=== PATIENT | female | born 1990 ===

== ENCOUNTER 2019-03-21 11:13 | Emergency (ER) | payer SELFPAY ==
--- NOTE | 2019-03-21 11:54 | Event Note ---
ED Screening Note Date of service: 03/21/19 Time: 11:47 ED Screening Note: 28 y o f presents with pelvic pain and vag bleed This initial assessment/diagnostic orders/clinical plan/treatment(s) is/are subject to change based on patients health status, clinical progression and re- assessment by fellow clinical providers in the ED. Further treatment and workup at subsequent clinical providers discretion. Patient/guardian urged not to elope from the ED as their condition may be serious if not clinically assessed and managed. Initial orders include: ua, upt
[2019-03-21 12:24] LABS: Bacteria,Urine 1+ /HPF (Negative); Bilirubin,Urine NEG (Negative); Blood,Urine NEG (Negative); Color,Urine Yellow (Yellow); Mucus,Urine 2+ /HPF; Protein,Urine <15 mg/dL mg/dL (Negative); Urobilinogen,Urine < 2.0 mg/dL (<2.0)
[2019-03-21 12:38] LABS: HCG Qualitative,Urine Negative (Negative)
--- NOTE | 2019-03-21 15:20 | Emergency Department Report ---
ED Female HPI - General Chief complaint: Urogenital-Female Stated complaint: PAIN IN GROIN Time Seen by Provider: 03/21/19 15:11 Source: patient Mode of arrival: Ambulatory Limitations: No Limitations - History of Present Illness Initial comments: Patient is a 28-year-old female that presents emergency room with complaints of pelvic pain and abnormal vaginal bleeding. Patient states she's been having pelvic pain for 15 days. Patient states that her vaginal bleeding started 3 days ago. Patient states she's had intermittent bleeding over the past 15 however 3 days ago it started with heavy bleeding. Patient states she has a metal IUD that was placed 3 years ago in [place]. Patient states she's not had a recheck to her find the placement of the IUD. Patient is also complaining of headache and dizziness. Patient states her headache and dizziness is better with rest and worse with exertion and movement. She states her headache and dizziness go away with rest. Patient states her pain is an 8 out of 10 and is worsening. Patient states the pain is in her suprapubic and lower abdomen region. Patient states that her pain is better with rest and worse with movement, and sex. MD Complaint: vaginal bleeding, pelvic pain -: Sudden Location: suprapubic, LLQ Radiation: non-radiating Severity: severe Severity scale (0 -10): 8 Quality: sharp Consistency: constant Improves with: other Worsens with: intercourse, menstrual period, movement Are you Now?: No Associated Symptoms: vaginal bleeding, abdominal pain, headaches, other. denies: vaginal discharge, nausea/vomiting, fever/chills, loss of appetite, dysuria, hematuria, rash, seizure, shortness of breath, syncope, weakness - Related Data Sexually active: Yes Previous Rx's Medication Instructions Recorded Last Taken Type Acetaminophen/Codeine [Tylenol 1 tab PO Q6H PRN #12 tab 03/21/19 Unknown Rx /Codeine # 3 tab] Allergies Allergy/AdvReac Type Severity Reaction Status Date / Time No Known Allergies Allergy Unverified 03/21/19 11:39 ED Review of Systems ROS: Stated complaint: PAIN IN GROIN Other details as noted in HPI Constitutional: denies: chills, fever Eyes: denies: eye pain, eye discharge, vision change ENT: denies: ear pain, throat pain Respiratory: denies: cough, shortness of breath, wheezing Cardiovascular: denies: chest pain, palpitations Endocrine: no symptoms reported Gastrointestinal: abdominal pain. denies: nausea, vomiting, diarrhea Genitourinary: denies: urgency, dysuria, discharge Musculoskeletal: denies: back pain, joint swelling, arthralgia Skin: denies: rash, lesions Neurological: headache. denies: weakness, paresthesias Psychiatric: denies: anxiety, depression Hematological/Lymphatic: denies: easy bleeding, easy bruising ED Past Medical Hx - Past Medical History Previous Medical History?: No - Surgical History Past Surgical History?: Yes Additional Surgical History: IUD - Family History Family history: no significant - Social History Smoking Status: Never Smoker Substance Use Type: None - Medications Home Medications: Home Medications Medication Instructions Recorded Confirmed Last Taken Type Acetaminophen/Codeine [Tylenol 1 tab PO Q6H PRN #12 tab 03/21/19 Unknown Rx /Codeine # 3 tab] ED Physical Exam - General Limitations: No Limitations General appearance: alert, in no apparent distress - Head Head exam: Present: atraumatic, normocephalic - Eye Eye exam: Present: normal appearance, PERRL Pupils: Present: normal accommodation - ENT ENT exam: Present: normal orophraynx, mucous membranes moist. Absent: mucous membranes dry - Neck Neck exam: Present: normal inspection - Respiratory Respiratory exam: Present: normal lung sounds bilaterally. Absent: respiratory distress, wheezes, rales - Cardiovascular Cardiovascular Exam: Present: regular rate, normal rhythm. Absent: systolic murmur, diastolic murmur, rubs, gallop - GI/Abdominal GI/Abdominal exam: Present: soft, tenderness, normal bowel sounds - Rectal Rectal exam: Present: deferred - Extremities Exam Extremities exam: Present: normal inspection - Back Exam Back exam: Present: normal inspection - Neurological Exam Neurological exam: Present: alert, oriented X3 - Psychiatric Psychiatric exam: Present: normal affect, normal mood - Skin Skin exam: Present: warm, dry, intact, normal color. Absent: rash ED Course Vital Signs 03/21/19 03/21/19 11:34 16:55 Temperature 97.5 F L 97.8 F Pulse Rate 92 H 70 Respiratory 18 16 Rate Blood Pressure 104/66 Blood Pressure 97/74 [Right] O2 Sat by Pulse 98 99 Oximetry - Reevaluation(s) Reevaluation #1: I discussed all results with patient. I discussed plan of care with patient and . Patient agrees plan of care. Patient we discharged home. Patient stable for discharge. I gave the patient discharge instructions. Patient voiced understanding of discharge instructions. 03/21/19 19:11 ED Medical Decision Making - Lab Data Result diagrams: 03/21/19 15:36 03/21/19 15:36 - Radiology Data Radiology results: report reviewed Pelvic ultrasound Doppler INDICATION: Pelvic pain TECHNIQUE: Real-time grayscale and Doppler imaging of the pelvis and ovaries performed. FINDINGS: Intrauterine device is noted within the endometrial canal the intrauterine device appears about 3 cm from the top of the fundus. Both ovaries normal in appearance with normal Doppler flow. No free pelvic fluid IMPRESSION: Possibly low intrauterine device which is located about 3 cm inferior with respect to the upper aspect of the fundus. - Medical Decision Making Patient is a 28-year-old female that presents emergency with complaints of lower abdominal pain and abnormal vaginal bleeding. Patient's also complained of headache and dizziness. Patient's labs are unremarkable. Patient also had an ultrasound done in the ER and was no acute findings except for a low riding IUD. Patient is stable for discharge. Patient discharged home. Patient require follow-up by an outpatient [facility]. - Differential Diagnosis abnormal vaginal bleeding, pelvic pain, displaced IUD. Ovarian torsion. Critical care attestation.: If time is entered above; I have spent that time in minutes in the direct care of this critically ill patient, excluding procedure time. ED Disposition Clinical Impression: Pelvic pain, IUD (intrauterine device) in place, Abnormal vaginal bleeding, Dizziness Disposition: DC-01 TO HOME OR SELFCARE Is pt being admited?: No Does the pt Need Aspirin: No Condition: Stable Instructions: Menstruation (ED), Dysfunctional Uterine Bleeding (ED), Menorrhagia (ED) Additional Instructions: Patient to follow up with primary care in 2-3 days. Patient to return to ER if condition worsens or changes or new symptoms arise. Patient to rest. Patient to follow up with [facility] in 2-3 days. Patient to take a vitamin daily. Patient to avoid anything per vagina until cleared by [facility]. Patient to increase water. Patient take Tylenol or ibuprofen when necessary for pain. Prescriptions: Acetaminophen/Codeine [Tylenol /Codeine # 3 tab] 1 tab PO Q6H PRN #12 tab PRN Reason: Pain , Severe (7-10) Referrals: PRIMARY CARE, [Primary Care Provider] - 2-3 Days ISHMAEL CHAVEZ MD [Staff Physician] - 2-3 Days Forms: Work/School Release Form(ED) Time of Disposition: 19:19 Print Language: LATVIAN
[2019-03-21 15:51] LABS: Hematocrit 34.5 % (30.3-42.9); Hemoglobin 12.2 gm/dl (10.1-14.3); Mean Corpuscular HGB Conc 35 % (30-34); Mean Corpuscular Volume 89 fl (79-97); Platelet Count 274 K/mm3 (140-440); Red Blood Count 3.89 M/mm3 (3.65-5.03); Red Cell Distribution Width 13.3 % (13.2-15.2)
[2019-03-21 16:06] LABS: Alanine Aminotransferase 12 units/L (7-56); Albumin 4.3 g/dL (3.9-5); BUN/Creatinine Ratio 20; Blood Urea Nitrogen 10 mg/dL (7-17); Calcium 9.5 mg/dL (8.4-10.2); Hemolysis Index 2
[2019-03-21 16:58] VITALS: BP 97/74
--- NOTE | 2019-03-21 18:55 | Ultrasound Report ---
Pelvic ultrasound Doppler INDICATION: Pelvic pain TECHNIQUE: Real-time grayscale and Doppler imaging of the pelvis and ovaries performed. FINDINGS: Intrauterine device is noted within the endometrial canal the intrauterine device appears a bout 3 cm from the top of the fundus. Both ovaries normal in appearance with normal Doppler flow. No free pelvic fluid IMPRESSION: Possibly low intrauterine device which is located about 3 cm inferior with respect to the upper aspect of the fundus. Signer Name: Tino Wilcox MD Signed: 03/21/2019 6:50 PM Workstation Name: [id number]
== END 2019-03-21 19:34 | disposition home or self-care (01) ==
LOC: ED 11:13
DX: N93.9 Abnormal uterine and vaginal bleeding, unspecified (principal); R42 Dizziness and giddiness; Z97.5 Presence of (intrauterine) contraceptive device
CPT/HCPCS: 36415; 76830; 76856; 80053; 81001; 81025; 85027